=== PATIENT | male | born 1940 | race Caucasian/White ===

== ENCOUNTER 2018-11-24 15:22 | Inpatient (IN) | payer OTHER ==
--- NOTE | 2018-11-24 15:53 | EDPHY ---
H & P Time Seen by Provider: 11/24/18 15:37 HPI/ROS: Chief complaint. Shortness of breath HPI. 78-year-old male presents emergency department with complaint of several weeks progressive swelling and shortness of breath. He has dyspnea on exertion. Patient had pericardial effusion that was drained in May 2018. Apparently the concern is it has gradually been reaccumulating. He has had increased swelling and shortness of breath. His say his lips however Blue. He has gained weight. The last 2 days decreased oral intake and decreased energy. He saw cardiac surgeon last week for consultation for para cardiac to me. He scheduled in 2 days for heart catheterization. He has no chest pain. He does have dyspnea on exertion. He felt to have an has a left proximal humerus fracture. He has swelling to hands and feet. ROS 10 systems were reviewed and negative with the exception of the elements mentioned in the history of present illness Past Medical/Surgical History: Pericarditis, humeral fracture, diabetes Social History: , nonsmoker, no alcohol Smoking Status: Former smoker Physical Exam: General Appearance: Alert well-developed male mild distress vital signs stable Eyes: Pupils equal and round no pallor or injection. ENT, Mouth: Mucous membranes are moist. Respiratory: There are no retractions, lungs are clear to auscultation. Cardiovascular: Regular rate and rhythm. Gastrointestinal: Abdomen is soft and nontender, no masses, bowel sounds normal. Neurological: Awake and alert, sensory and motor exams grossly normal. Skin: Warm and dry, no rashes. Musculoskeletal: Neck is supple nontender. Extremities 2+ edema to both hands and feet Psychiatric: Patient is oriented X 3, there is no agitation. Constitutional: Initial Vital Signs Temperature (C) 37.1 C 11/24/18 15:25 Heart Rate 94 11/24/18 15:25 Respiratory Rate 18 11/24/18 15:25 Blood Pressure 105/83 H 11/24/18 15:25 O2 Sat (%) 93 11/24/18 15:25 O2 Delivery Mode Room Air Allergies/Adverse Reactions: No Known Allergies Allergy (Verified 11/24/18 15:23) Home Medications: Medication Instructions Recorded Carvedilol [Coreg (*)] 6.25 mg PO BIDMEAL 11/19/18 Colchicine [Colchicine (*)] 0.6 mg PO DAILY 11/19/18 Hydrocodone/APAP 5/325 [[place] 1 each PO Q4-6PRN PRN 11/19/18 5/325 (*)] Insulin Glargine [Lantus 100 75 - 80 units SC HS 11/19/18 UNITS/ML] Insulin Lispro [Humalog] 25 - 30 unit SQ TIDMEAL 11/19/18 Liraglutide [Victoza 3-Rc] 1.8 mg SQ HS 11/19/18 Losartan Potassium 100 mg PO DAILY 11/19/18 Rosuvastatin Calcium [Crestor 10mg 5 mg PO DAILY 11/19/18 (RX)] metFORMIN HCL [Glucophage 500 mg 500 mg PO BIDMEAL 11/19/18 (*)] Carvedilol 11/24/18 Medical Decision Making - Diagnostics EKG Interpretation: EKG interpreted by me shows ventricular paced rhythms. Left axis deviation. Interventricular conduction delay. No significant ST elevation or depression. No arrhythmia. The rate is 102 Imaging Results: Imaging Impressions Chest X-Ray 11/24/18 16:05 Impression: 1. Severe cardiomegaly. Central vascular prominence. 2. Hazy opacity at the left lung base may represent an effusion or artifact from overlying/adjacent soft tissue. Lateral chest radiograph would be helpful. Chest x-ray significant for cardiomegaly Procedures: IV normal saline ED Course/Re-evaluation: Re-evaluation 4:45 p.m.. Patient is stable. The patient is and I discussed laboratory imaging EKG evaluation. We discussed treatment plan including recommendation for admission. They expressed understanding and agreement I consulted discussed the case with Dr. Mario, hospitalist, who agrees to the admission Differential Diagnosis: Cardiomegaly and dyspnea on exertion gradually increasing in a patient with previous pericarditis complicated by fusion in tamponade. I have also considered congestive heart failure as well as acute coronary syndrome - Data Points Laboratory Results: Laboratory Results 11/24/18 15:55 11/24/18 15:55 11/24/18 11/24/18 11/24/18 16:03 15:55 15:55 WBC RBC Hgb Hct MCV MCH MCHC RDW Plt Count MPV Neut % (Auto) Lymph % (Auto) [place] % (Auto) Eos % (Auto) Baso % (Auto) Nucleat RBC Rel Count Absolute Neuts (auto) Absolute Lymphs (auto) Absolute Monos (auto) Absolute Eos (auto) Absolute Basos (auto) Absolute Nucleated RBC Immature Gran % Immature Gran # ESR PT 13.5 SEC SEC (12.0-15.0) INR 1.07 (0.83-1.16) APTT 29.4 SEC SEC (23.0-38.0) Sodium 135 mEq/L mEq/L (135-145) Potassium 3.9 mEq/L mEq/L (3.5-5.2) Chloride 101 mEq/L mEq/L (97-110) Carbon Dioxide 25 mEq/l mEq/l (22-31) Anion Gap 9 mEq/L mEq/L (6-14) BUN 23 mg/dL mg/dL (7-23) Creatinine 1.6 mg/dL H mg/dL (0.7-1.3) Estimated GFR 42 Glucose 73 mg/dL mg/dL (70-100) Calcium 9.7 mg/dL mg/dL (8.5-10.4) POC Troponin I 0.05 ng/mL ng/mL (0.00-0.08) NT-Pro-B Natriuret Pep 423 pg/mL pg/mL (0-450) 11/24/18 15:55 WBC 11.70 10^3/uL H 10^3/uL (3.80-9.50) RBC 4.54 10^6/uL 10^6/uL (4.40-6.38) Hgb 13.7 g/dL g/dL (13.7-17.5) Hct 40.1 % % (40.0-51.0) MCV 88.3 fL fL (81.5-99.8) MCH 30.2 pg pg (27.9-34.1) MCHC 34.2 g/dL g/dL (32.4-36.7) RDW 15.2 % % (11.5-15.2) Plt Count 233 10^3/uL 10^3/uL (150-400) MPV 11.4 fL fL (8.7-11.7) Neut % (Auto) 67.2 % % (39.3-74.2) Lymph % (Auto) 19.1 % % (15.0-45.0) [place] % (Auto) 10.6 % % (4.5-13.0) Eos % (Auto) 1.0 % % (0.6-7.6) Baso % (Auto) 0.8 % % (0.3-1.7) Nucleat RBC Rel Count 0.0 % % (0.0-0.2) Absolute Neuts (auto) 7.86 10^3/uL H 10^3/uL (1.70-6.50) Absolute Lymphs (auto) 2.24 10^3/uL 10^3/uL (1.00-3.00) Absolute Monos (auto) 1.24 10^3/uL H 10^3/uL (0.30-0.80) Absolute Eos (auto) 0.12 10^3/uL 10^3/uL (0.03-0.40) Absolute Basos (auto) 0.09 10^3/uL 10^3/uL (0.02-0.10) Absolute Nucleated RBC 0.00 10^3/uL 10^3/uL (0-0.01) Immature Gran % 1.3 % H % (0.0-1.1) Immature Gran # 0.15 10^3/uL H 10^3/uL (0.00-0.10) ESR 20 MM/HR MM/HR (0-20) PT INR APTT Sodium Potassium Chloride Carbon Dioxide Anion Gap BUN Creatinine Estimated GFR Glucose Calcium POC Troponin I NT-Pro-B Natriuret Pep Point of Care Test Results: Chemistry 11/24/18 16:03 POC Troponin I 0.05 ng/mL ng/mL (0.00-0.08) Departure - Departure Disposition: Home, Routine, Self-Care Clinical Impression: Dyspnea Qualifiers: Dyspnea type: dyspnea on exertion Qualified Code(s): R06.09 - Other forms of dyspnea Condition: Fair
[2018-11-24 16:16] LABS: PLATELET COUNT 233 10^3/uL (150-400)
[2018-11-24 16:33] LABS: INR 1.07 (0.83-1.16); PROTIME(PATIENT) 13.5 SEC (12.0-15.0)
[2018-11-24] MEDS ORDERED: ACETAMINOPHEN 500 MG TAB ONE (17:01)
[2018-11-24] MEDS ORDERED: ACETAMINOPHEN 500 MG TAB PO ONE (17:03)
--- NOTE | 2018-11-24 17:22 | CPEKG ---
Test Reason : OPEN Blood Pressure : / mmHG Vent. Rate : 102 BPM Atrial Rate : 101 BPM P-R Int : 167 ms QRS Dur : 134 ms QT Int : 416 ms P-R-T Axes : -56 071 260 degrees QTc Int : 543 ms Ventricular-paced complexes Confirmed by Devonte Garcia ([id number]) on 11/24/2018 5:22:08 PM Referred By: Devonte Garcia Confirmed By:Devonte Garcia
[2018-11-24] MEDS ORDERED: D50W 25 GM/50 ML SYR IVP PRN (17:39)
--- NOTE | 2018-11-24 17:57 | PDGENHP ---
<Emely Petit - Last Filed: 11/24/18 18:22> History and Physical - Chief Complaint Dyspnea, edematous - History of Present Illness 78 y/o male w/hx of pericarditis complicated by effusion w/cardiac tamponade requiring pericardiocentesis in May 2018 presents to the ED 2 days before undergoing cardiac cath d/t worsening dyspnea upon exertion and edematous. He was recently seen by Dr. Ramos in office 11/18/18 re: additional weight gain of 10 lbs and reaccumulation tightness in his abdomen and swelling in his legs. He also has become quite dyspneic w/exertion and per pt, his tells him his lips turn purple. He denies CP, palpitations, nausea. Endorses lightheadedness w/exertion. Two weeks prior, he fell down stairs and broke his left humeral head - no surgery but requires immobilization in a sling for an undetermined amount of time hence surgical evaluation for his echogenic evidence of constrictive pericarditis and referral for pericardiectomy was delayed. He is being admitted for treatment and monitoring. History Information - Allergies/Home Medication List Allergies/Adverse Reactions: No Known Allergies Allergy (Verified 11/24/18 15:23) Home Medications: Carvedilol [Coreg (*)] 6.25 mg PO BIDMEAL 11/19/18 [Last Taken 11/24/18] Colchicine [Colchicine (*)] 0.6 mg PO DAILY 11/19/18 [Last Taken 11/24/18] Hydrocodone/APAP 5/325 [[place] 5/325 (*)] 1 each PO Q4-6PRN PRN 11/19/18 [Last Taken Unknown] Insulin Glargine [Lantus 100 UNITS/ML] 75 units SC DAILY 11/19/18 [Last Taken ] Insulin Lispro [Humalog] 25 - 30 unit SQ TIDMEAL 11/19/18 [Last Taken 11/24/18] Liraglutide [Victoza 3-Rc] 1.8 mg SQ HS 11/19/18 [Last Taken 11/23/18] Losartan Potassium 100 mg PO DAILY 11/19/18 [Last Taken 11/24/18] Rosuvastatin Calcium [Crestor 10mg (RX)] 5 mg PO DAILY 11/19/18 [Last Taken ] metFORMIN HCL [Glucophage 500 mg (*)] 500 mg PO BIDMEAL 11/19/18 [Last Taken ] I have personally reviewed and updated: family history, medical history, social history, surgical history Past Medical History: Chronic renal insufficiency, Obesity, Hypogonadism, 2nd degree AV block/Mobitz Type I - Past Medical History diabetes type 2, GERD, hypertension - Surgical History Reports: pacemaker/AICD (2013) Additional surgical history: Cataract, colonoscopy - Family History Positive for: non-pertinent - Social History Smoking Status: Former smoker Alcohol Use: Rarely Drug Use: None Additional social history: . 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 Review of Systems Review of Systems: ROS: 10pt was reviewed & negative except for what was stated in HPI & below Physical Exam Physical Exam: Lab data and imaging were reviewed. Case discussed w/admitting physician, Dr. Jose Mario WBC: 11.70 H/H: 13.7/40.1 Plt count: 233 Na: 135 K: 3.9 Cl: 101 Co2: 25 BUN/Cr: 23/1.6 ESR: 20 INR: 1.07 Trop: 0.05 BNP: 423 CXR: severe cardiomegaly. EKG:V-paced, No significant ST elevation or depression. Temp Pulse Resp BP Pulse Ox 37.1 C 105 H 19 111/76 99 11/24/18 17:25 11/24/18 17:25 11/24/18 17:25 11/24/18 17:25 11/24/18 17:25 O2 (L/minute) 2 Constitutional: no apparent distress, not in pain, obese Eyes: PERRL, anicteric sclera, EOMI Ears, Nose, Mouth, Throat: moist mucous membranes, hearing normal, ears appear normal, no oral mucosal ulcers Cardiovascular: regular rate and rhythym, no murmur, rub, or gallop, tachycardia , No edema Peripheral Pulses: 2+: dorsalis-pedis (R) (Non pitting edema), dorsalis-pedis (L ) (Non pitting edema) Respiratory: reduced air movement Gastrointestinal: normoactive bowel sounds, soft, non-tender abdomen, no palpable masses Genitourinary: no bladder fullness, no bladder tenderness Skin: warm, normal color, no rashes or abrasions, no fluctuance, no induration, No mottled Musculoskeletal: full muscle strength, no muscle tenderness, normal joint ROM, no joint effusions Neurologic: AAOx3, sensation intact bilaterally, CN II-XII Intact Psychiatric: interacting appropriately, not anxious, not encephalopathic, thought process linear Lymph, Heme, Immunologic: no cervical LAD, no supraclavicular LAD Lab Data & Imaging Review 11/24/18 15:55 11/24/18 15:55 WBC 11.70 10^3/uL (3.80-9.50) H 11/24/18 15:55 RBC 4.54 10^6/uL (4.40-6.38) 11/24/18 15:55 Hgb 13.7 g/dL (13.7-17.5) 11/24/18 15:55 Hct 40.1 % (40.0-51.0) 11/24/18 15:55 MCV 88.3 fL (81.5-99.8) 11/24/18 15:55 MCH 30.2 pg (27.9-34.1) 11/24/18 15:55 MCHC 34.2 g/dL (32.4-36.7) 11/24/18 15:55 RDW 15.2 % (11.5-15.2) 11/24/18 15:55 Plt Count 233 10^3/uL (150-400) 11/24/18 15:55 MPV 11.4 fL (8.7-11.7) 11/24/18 15:55 Neut % (Auto) 67.2 % (39.3-74.2) 11/24/18 15:55 Lymph % (Auto) 19.1 % (15.0-45.0) 11/24/18 15:55 [place] % (Auto) 10.6 % (4.5-13.0) 11/24/18 15:55 Eos % (Auto) 1.0 % (0.6-7.6) 11/24/18 15:55 Baso % (Auto) 0.8 % (0.3-1.7) 11/24/18 15:55 Nucleat RBC Rel Count 0.0 % (0.0-0.2) 11/24/18 15:55 Absolute Neuts (auto) 7.86 10^3/uL (1.70-6.50) H 11/24/18 15:55 Absolute Lymphs (auto) 2.24 10^3/uL (1.00-3.00) 11/24/18 15:55 Absolute Monos (auto) 1.24 10^3/uL (0.30-0.80) H 11/24/18 15:55 Absolute Eos (auto) 0.12 10^3/uL (0.03-0.40) 11/24/18 15:55 Absolute Basos (auto) 0.09 10^3/uL (0.02-0.10) 11/24/18 15:55 Absolute Nucleated RBC 0.00 10^3/uL (0-0.01) 11/24/18 15:55 Immature Gran % 1.3 % (0.0-1.1) H 11/24/18 15:55 Immature Gran # 0.15 10^3/uL (0.00-0.10) H 11/24/18 15:55 ESR 20 MM/HR (0-20) 11/24/18 15:55 PT 13.5 SEC (12.0-15.0) 11/24/18 15:55 INR 1.07 (0.83-1.16) 11/24/18 15:55 APTT 29.4 SEC (23.0-38.0) 11/24/18 15:55 Sodium 135 mEq/L (135-145) 11/24/18 15:55 Potassium 3.9 mEq/L (3.5-5.2) 11/24/18 15:55 Chloride 101 mEq/L (97-110) 11/24/18 15:55 Carbon Dioxide 25 mEq/l (22-31) 11/24/18 15:55 Anion Gap 9 mEq/L (6-14) 11/24/18 15:55 BUN 23 mg/dL (7-23) 11/24/18 15:55 Creatinine 1.6 mg/dL (0.7-1.3) H 11/24/18 15:55 Estimated GFR 42 11/24/18 15:55 Glucose 73 mg/dL (70-100) 11/24/18 15:55 Calcium 9.7 mg/dL (8.5-10.4) 05/20/19 15:55 POC Troponin I 0.05 ng/mL (0.00-0.08) 11/24/18 16:03 NT-Pro-B Natriuret Pep 423 pg/mL (0-450) 11/24/18 15:55 Assessment & Plan Assessment: 78 y/o obese male w/hx of pericarditis complicated w/cardiac tamponade and undergoing pericardiocentesis May 2018 presenting 2 days before scheduled cardiac cath procedure d/t worsening dyspnea upon exertion and extremities edematous. Last set of vitals are the following: BP 125/73, HR 96, Resp 24, Temp 37.1, oxgen 98% 2L NC. #Constrictive pericarditis -Symptomatic w/ dyspnea upon exertion, fluid overloaded, "purple" lips, lightheadedness -Cards consulted. I spoke w/Antoinette Jackson DOLPHIN TRAINER. Cards team will evaluate the pt in AM. Plan per Dr. Ramos's last note was L/RHC simultaneously and if abnormal, pericardectomy +/- CABG pending cath -Recent ECHO in early November suggests constriction w/o effusion -Considering one time dose of Lasix IVP -Daily weights -Cont tele/PCU monitoring -Cycle one trop #Diabetes -Poorly controlled -Checking A1c -ISS while in house, ACHS glucose checks. Holding metformin and Victoza, will cont long acting home insulin #SHIRA: consider CPAP use @ HS #Chronic renal insufficiency, stage IV -Appears to be at baseline (Cr 1.6) -Avoid nephrotoxic agents #Left humeral head fx -Keep immobilized in sling -Pain management PO PRN -PT/OT to evaluate and treat Diet: Cardiac now, NPO at midnight tonight for possible procedure in AM after cards eval VTE ppx: SCDs Code: Full Dispo: Admit to inpatient <Kota Mario - Last Filed: 11/24/18 19:12> History and Physical - History of Present Illness Review of Systems Review of Systems: Physical Exam Physical Exam: Temp Pulse Resp BP Pulse Ox 37.1 C 105 H 19 111/76 99 11/24/18 17:25 11/24/18 17:25 11/24/18 17:25 11/24/18 17:25 11/24/18 17:25 O2 (L/minute) 2 Lab Data & Imaging Review 11/24/18 15:55 11/24/18 15:55 WBC 11.70 10^3/uL (3.80-9.50) H 11/24/18 15:55 RBC 4.54 10^6/uL (4.40-6.38) 11/24/18 15:55 Hgb 13.7 g/dL (13.7-17.5) 11/24/18 15:55 Hct 40.1 % (40.0-51.0) 11/24/18 15:55 MCV 88.3 fL (81.5-99.8) 11/24/18 15:55 MCH 30.2 pg (27.9-34.1) 11/24/18 15:55 MCHC 34.2 g/dL (32.4-36.7) 11/24/18 15:55 RDW 15.2 % (11.5-15.2) 11/24/18 15:55 Plt Count 233 10^3/uL (150-400) 11/24/18 15:55 MPV 11.4 fL (8.7-11.7) 11/24/18 15:55 Neut % (Auto) 67.2 % (39.3-74.2) 11/24/18 15:55 Lymph % (Auto) 19.1 % (15.0-45.0) 11/24/18 15:55 [place] % (Auto) 10.6 % (4.5-13.0) 11/24/18 15:55 Eos % (Auto) 1.0 % (0.6-7.6) 11/24/18 15:55 Baso % (Auto) 0.8 % (0.3-1.7) 11/24/18 15:55 Nucleat RBC Rel Count 0.0 % (0.0-0.2) 11/24/18 15:55 Absolute Neuts (auto) 7.86 10^3/uL (1.70-6.50) H 11/24/18 15:55 Absolute Lymphs (auto) 2.24 10^3/uL (1.00-3.00) 11/24/18 15:55 Absolute Monos (auto) 1.24 10^3/uL (0.30-0.80) H 11/24/18 15:55 Absolute Eos (auto) 0.12 10^3/uL (0.03-0.40) 11/24/18 15:55 Absolute Basos (auto) 0.09 10^3/uL (0.02-0.10) 11/24/18 15:55 Absolute Nucleated RBC 0.00 10^3/uL (0-0.01) 11/24/18 15:55 Immature Gran % 1.3 % (0.0-1.1) H 11/24/18 15:55 Immature Gran # 0.15 10^3/uL (0.00-0.10) H 11/24/18 15:55 ESR 20 MM/HR (0-20) 11/24/18 15:55 PT 13.5 SEC (12.0-15.0) 11/24/18 15:55 INR 1.07 (0.83-1.16) 11/24/18 15:55 APTT 29.4 SEC (23.0-38.0) 11/24/18 15:55 Sodium 135 mEq/L (135-145) 11/24/18 15:55 Potassium 3.9 mEq/L (3.5-5.2) 11/24/18 15:55 Chloride 101 mEq/L (97-110) 11/24/18 15:55 Carbon Dioxide 25 mEq/l (22-31) 11/24/18 15:55 Anion Gap 9 mEq/L (6-14) 11/24/18 15:55 BUN 23 mg/dL (7-23) 11/24/18 15:55 Creatinine 1.6 mg/dL (0.7-1.3) H 11/24/18 15:55 Estimated GFR 42 11/24/18 15:55 Glucose 73 mg/dL (70-100) 11/24/18 15:55 POC Glucose 61 mg/dL (70-100) L 11/24/18 17:48 Calcium 9.7 mg/dL (8.5-10.4) 11/24/18 15:55 POC Troponin I 0.05 ng/mL (0.00-0.08) 11/24/18 16:03 NT-Pro-B Natriuret Pep 423 pg/mL (0-450) 11/24/18 15:55 Assessment & Plan Assessment: 78M with pericardial tamponade, being evaluated as outpatient for pericardiectomy. Presented with worsening symptoms. No pulsus paradoxus on exam, not hypotensive. Plan: - hold BP meds - RHC/LHC tomorrow to eval for CABG at the time of pericardiectomy - follow renal function closely after cath
[2018-11-24] MEDS ORDERED: HYDROCODONE/APAP 5/325 TAB PO PRN (18:19)
[2018-11-24] MEDS: INSULIN REGULAR HUMAN 100 UNIT/ML UNIT SC SCH (21:21)
[2018-11-25] MEDS: INSULIN REGULAR HUMAN 100 UNIT/ML UNIT SC SCH ×4 (05:24→20:51)
[2018-11-25] MEDS ORDERED: CARVEDILOL 6.25 MG TAB PO SCH (08:00)
[2018-11-25] MEDS ORDERED: LOSARTAN POTASSIUM 50 MG TAB PO SCH (09:00)
[2018-11-25] MEDS ORDERED: COLCHICINE 0.6 MG CAP/TAB PO SCH (09:00)
[2018-11-25] MEDS ORDERED: INSULIN GLARGINE 100 UNITS/ML UNIT SC SCH ×3 (09:00→21:00)
[2018-11-25] MEDS: ROSUVASTATIN CALCIUM 10 MG TAB PO SCH (09:33)
[2018-11-25] MEDS: ACETAMINOPHEN 325 MG TAB PO PRN ×2 (09:33→20:43)
--- NOTE | 2018-11-25 09:53 | PDMN ---
Medical Necessity Medical necessity: Pt meets inpt criteria per MD order and MCG [id number], Pericarditis, A-2 days, inpt adm indicated for: evidence of constrictive pericarditis (worsening dyspnea upon exertion, light-headedness, most recent ECHO from early November suggests constriction w/o effusion), current cxr shows severe cardiomegaly w/possible effusion. 78 y/o w/hx previous pericarditis complicated by effusion w/cardiac tamponade requiring pericardiocentesis in May 2018 now presents w/worsening dyspnea, recent 10# wt gain, and reaccumulation of tightness in abd and swelling in legs, admitted now w/symptomatic constrictive pericarditis, cardiology consult pending, R/LHC today, anticipate> 2MN for further eval/treatment of above. PMHx includes (in addition to above) diabetes (poorly controlled), obesity, SHIRA, stage IV chronic renal insufficiency , recent fall sustaining L humeral head fx.
[2018-11-25] MEDS ORDERED: TEMAZEPAM 15 MG CAP PO PRN (11:03)
[2018-11-25] MEDS ORDERED: diphenhydrAMINE 25 MG CAP PO ONE (11:03)
[2018-11-25] MEDS ORDERED: DIAZEPAM 5 MG TAB PO ONE (11:03)
[2018-11-25] MEDS ORDERED: FAMOTIDINE 20 MG TAB PO ONE (11:03)
[2018-11-25] MEDS ORDERED: NITROGLYCERIN 0.4 MG BTL SL PRN (11:03)
[2018-11-25] MEDS ORDERED: ASPIRIN EC 325 MG TAB PO ONE (11:03)
[2018-11-25] MEDS ORDERED: fentaNYL 100 MCG/2 ML INJ ONE (11:12)
[2018-11-25] MEDS ORDERED: LIDOCAINE 1% 300 MG/30 ML SDV ONE (11:12)
[2018-11-25] MEDS ORDERED: IOPAMIDOL (ISOVUE 370) 100 ML BTL IV ONE (11:13)
[2018-11-25] MEDS ORDERED: MIDAZOLAM 2 MG/2 ML VIAL ONE (11:13)
--- NOTE | 2018-11-25 11:55 | PDPROPOC ---
Sedation Plan of Care Sedation Plan of Care: vital signs stable, mental status noted, patient educated of risks, benefits, alternatives, patient can tolerate sedation ASA Classification: ASA 2 Planned drugs: fentanyl, midazolam Mallampati Score: Class 1 Mallampati Reference Image: Patient passed 3-3-2 rule?: Yes
--- NOTE | 2018-11-25 12:00 | PDCARCONS ---
Cardiology Consult Reason for Consult: Evaluation for constriction including cardiac catheterization and review of echocardiography Chief Complaint: 78-year-old male admitted for evaluation of cardiac constriction in the setting of recurrent pericarditis status post pericardiocentesis. Symptoms of progressive lower extremity swelling, shortness of breath, fatigue, dizziness. Requesting Physician: raza History of Present Illness: 78-year-old male history of second-degree heart block with permanent pacemaker implanted prior 2014. He had been followed by the [facility] for many years. He had a nuclear stress test in 2014 which showed a question of an apical defect which was treated medically. Hyperlipidemia has been well managed. He has underlying diabetes which has been managed. He has no prior history of myocardial infarction. No history of heart failure. Patient had episode of pericarditis in May complicated by a effusion. This suggested tamponade physiology and underwent pericardiocentesis. He has been treated for both acute and chronic pericarditis. After stopping treatment he again developed symptoms of fatigue shortness of breath and lower extremity swelling. Echocardiography done at the [facility] suggested constriction any was referred to Damian Ramos for pericardial stripping. Ejection fraction is followed from the normal range to 40% on most recent studies. History Information - Allergies/Home Medication List Allergies/Adverse Reactions: No Known Allergies Allergy (Verified 11/24/18 15:23) Home Medications: Carvedilol [Coreg (*)] 6.25 mg PO BIDMEAL 11/19/18 [Last Taken 11/24/18] Colchicine [Colchicine (*)] 0.6 mg PO DAILY 11/19/18 [Last Taken 11/24/18] Hydrocodone/APAP 5/325 [[place] 5/325 (*)] 1 each PO Q4-6PRN PRN 11/19/18 [Last Taken Unknown] Insulin Glargine [Lantus 100 UNITS/ML] 75 units SC DAILY 11/19/18 [Last Taken ] Insulin Lispro [Humalog] 25 - 30 unit SQ TIDMEAL 11/19/18 [Last Taken 11/24/18] Liraglutide [Victoza 3-Rc] 1.8 mg SQ HS 11/19/18 [Last Taken 11/23/18] Losartan Potassium 100 mg PO DAILY 11/19/18 [Last Taken 11/24/18] Rosuvastatin Calcium [Crestor 10mg (RX)] 5 mg PO DAILY 11/19/18 [Last Taken ] metFORMIN HCL [Glucophage 500 mg (*)] 500 mg PO BIDMEAL 11/19/18 [Last Taken ] I have personally reviewed and updated: family history, medical history, social history, surgical history Past Medical History: - Past Medical History hypertension, hyperlipidemia - Social History Smoking Status: Former smoker Alcohol Use: Rarely Drug Use: None Physical Exam Physical Exam: Temp Pulse Resp BP Pulse Ox 36.7 C 89 20 122/77 H 97 11/25/18 07:01 11/25/18 07:01 11/25/18 07:01 11/25/18 07:01 11/25/18 07:01 O2 (L/minute) 2 Constitutional: no apparent distress Eyes: PERRL Ears, Nose, Mouth, Throat: moist mucous membranes Cardiovascular: regular rate and rhythym, other (No knock.), No systolic murmur , No JVD Peripheral Pulses: 1+: carotid (R), carotid (L) Respiratory: no respiratory distress Gastrointestinal: soft, non-tender abdomen Skin: warm, No rash Neurologic: facial droop Psychiatric: interacting appropriately Lymph, Heme, Immunologic: no cervical LAD, no supraclavicular LAD Lab and Imaging 11/24/18 15:55 11/24/18 15:55 WBC 11.70 10^3/uL (3.80-9.50) H 11/24/18 15:55 RBC 4.54 10^6/uL (4.40-6.38) 11/24/18 15:55 Hgb 13.7 g/dL (13.7-17.5) 11/24/18 15:55 Hct 40.1 % (40.0-51.0) 11/24/18 15:55 MCV 88.3 fL (81.5-99.8) 11/24/18 15:55 MCH 30.2 pg (27.9-34.1) 11/24/18 15:55 MCHC 34.2 g/dL (32.4-36.7) 11/24/18 15:55 RDW 15.2 % (11.5-15.2) 11/24/18 15:55 Plt Count 233 10^3/uL (150-400) 11/24/18 15:55 MPV 11.4 fL (8.7-11.7) 11/24/18 15:55 Neut % (Auto) 67.2 % (39.3-74.2) 11/24/18 15:55 Lymph % (Auto) 19.1 % (15.0-45.0) 11/24/18 15:55 [place] % (Auto) 10.6 % (4.5-13.0) 11/24/18 15:55 Eos % (Auto) 1.0 % (0.6-7.6) 11/24/18 15:55 Baso % (Auto) 0.8 % (0.3-1.7) 11/24/18 15:55 Nucleat RBC Rel Count 0.0 % (0.0-0.2) 11/24/18 15:55 Absolute Neuts (auto) 7.86 10^3/uL (1.70-6.50) H 11/24/18 15:55 Absolute Lymphs (auto) 2.24 10^3/uL (1.00-3.00) 11/24/18 15:55 Absolute Monos (auto) 1.24 10^3/uL (0.30-0.80) H 11/24/18 15:55 Absolute Eos (auto) 0.12 10^3/uL (0.03-0.40) 11/24/18 15:55 Absolute Basos (auto) 0.09 10^3/uL (0.02-0.10) 11/24/18 15:55 Absolute Nucleated RBC 0.00 10^3/uL (0-0.01) 11/24/18 15:55 Immature Gran % 1.3 % (0.0-1.1) H 11/24/18 15:55 Immature Gran # 0.15 10^3/uL (0.00-0.10) H 11/24/18 15:55 ESR 20 MM/HR (0-20) 11/24/18 15:55 PT 13.5 SEC (12.0-15.0) 11/24/18 15:55 INR 1.07 (0.83-1.16) 11/24/18 15:55 APTT 29.4 SEC (23.0-38.0) 11/24/18 15:55 Sodium 135 mEq/L (135-145) 11/24/18 15:55 Potassium 3.9 mEq/L (3.5-5.2) 11/24/18 15:55 Chloride 101 mEq/L (97-110) 11/24/18 15:55 Carbon Dioxide 25 mEq/l (22-31) 11/24/18 15:55 Anion Gap 9 mEq/L (6-14) 11/24/18 15:55 BUN 23 mg/dL (7-23) 11/24/18 15:55 Creatinine 1.6 mg/dL (0.7-1.3) H 11/24/18 15:55 Estimated GFR 42 11/24/18 15:55 Glucose 73 mg/dL (70-100) 11/24/18 15:55 POC Glucose 89 mg/dL (70-100) 11/25/18 08:12 Hemoglobin A1c 8.4 % (4.0-6.0) H 11/24/18 17:46 Estim Average Glucose 194 mg/dL (68-126) H 11/24/18 17:46 Calcium 9.7 mg/dL (8.5-10.4) 11/24/18 15:55 POC Troponin I 0.05 ng/mL (0.00-0.08) 11/24/18 16:03 Troponin I 0.053 ng/mL (0.000-0.034) H 11/24/18 19:54 NT-Pro-B Natriuret Pep 423 pg/mL (0-450) 11/24/18 15:55 A/P Assessment: Heart failure associated with decreased ejection fraction, recent pericardiocentesis in the setting of acute and chronic pericarditis, longstanding diabetes, longstanding pacing due to second-degree heart block for assessment of constriction today. Risks and benefits of a diagnostic cardiac catheterization were discussed. Will also plan to repeat echocardiographic parameters once we understand his filling pressures. Query related to long- term pacing versus presence of underlying severe multivessel coronary disease.
--- NOTE | 2018-11-25 13:09 | PDDXCAT ---
Diagnostic Cath Note - . 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) - Procedure Access: right groin Procedure: left heart catheterization, coronary angiography, right heart catheterization - Materials Left Heart Cath size: 5F Left Heart Cath materials: standard multipack (JL4, JR4, pigtail) Right Heart Cath size: 7F Right Heart Cath materials: PWP catheter - Findings-Left Heart Catheterization LM: Unobstructed LAD: Unobstructed LCX: Unobstructed RCA: Unobstructed - Findings-Right Heart Catheterization RA: 12 mm of mercury RV: 43/12 mm of mercury PA: 44/20 mm of mercury PAOP: 18 mm of mercury Complications: None Estimated blood loss: <50ml Closure method: Angioseal Assessment: Hemodynamics with simultaneous RV LV tracings suggest discordance consistent with constrictive cardiomyopathy. Nonfocal mild atherosclerotic cardiovascular disease Plan: Await echo confirmation/CT surgery consultation. Patient Problems: Problems Problem Status Onset Dyspnea Acute
--- NOTE | 2018-11-25 15:20 | HOSPPROG ---
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 Objective: Vital Signs Temp Pulse Resp BP Pulse Ox 36.7 C 88 17 121/80 H 96 11/25/18 07:01 11/25/18 14:56 11/25/18 14:56 11/25/18 14:56 11/25/18 14:56 11/24/18 11/25/18 11/26/18 05:59 05:59 05:59 Intake Total 700 650 Output Total 390 Balance 310 650 PT 13.5 SEC (12.0-15.0) 11/24/18 15:55 INR 1.07 (0.83-1.16) 11/24/18 15:55 EKG viewed, my personal interpretation is - paced CXR - CM, mild CHF Laboratory Tests 11/24/18 11/24/18 15:55 19:54 Creatinine 1.6 H Troponin I 0.053 H - Physical Exam Constitutional: no apparent distress, appears nourished, not in pain Cardiovascular: regular rate and rhythym, no murmur, rub, or gallop Respiratory: no respiratory distress, no rales or rhonchi, clear to auscultation Gastrointestinal: normoactive bowel sounds, soft, non-tender abdomen, no palpable masses Skin: no rashes or abrasions, no fluctuance, no induration Neurologic: AAOx3, sensation intact bilaterally Psychiatric: interacting appropriately, not anxious, not encephalopathic, thought process linear ICD10 Worksheet Patient Problems: Problems Problem Status Onset Dyspnea Acute
--- NOTE | 2018-11-25 15:45 | ASMTCMCOM ---
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 Attempted to meet w/pt, sleeping after procedure; no family in the room. Therapy evals are pending. Case Management d/c poc: to be determined. Case Management to follow. Date Signed: 11/25/2018 03:45 PM Electronically Signed By:Nyla Collins RN
[2018-11-25 16:48] LABS: PLATELET COUNT 178 10^3/uL (150-400)
[2018-11-25 17:11] LABS: INR 1.1 (0.83-1.16); PROTIME(PATIENT) 13.8 SEC (12.0-15.0)
[2018-11-26] MEDS: INSULIN REGULAR HUMAN 100 UNIT/ML UNIT SC SCH ×4 (07:53→21:28)
[2018-11-26] MEDS: ROSUVASTATIN CALCIUM 10 MG TAB PO SCH (09:07)
[2018-11-26] MEDS: ACETAMINOPHEN 325 MG TAB PO PRN (09:07)
[2018-11-26] MEDS ORDERED: BACITRACIN IRRIGATION/NS 50,000 UNITS/1,000 ML BTL IRR ONE (13:00)
[2018-11-26] MEDS ORDERED: NS 1,000 ML IV ONE (13:00)
[2018-11-26] MEDS ORDERED: ceFAZolin 2 GM/DEXTROSE 100 ML IV ONE (13:00)
--- NOTE | 2018-11-26 13:22 | ECHO ---
[email or web address] [address] [address] Main: [phone] Echocardiography Examination Transesophageal Name: DUSTIN HARRINGTON MR#: [id number] Study Date: 11/25/2018 Study Time: 11:19 AM Date of : 1940 Age: 78 year(s) Height: 170.2 cm (67 in.) Weight: 99.79 kg (220 lb.) BSA: 2.11 m2 Gender: Male Examination: Echo Contrast: Image Quality: Fair Rhythm: Pacemaker rhythm Heart Rate: 100 bpm BP: 136 mmHg/75 mmHg Indication: Pre Cath, Echo and Constriction vs Restriction Procedure Staff Referring Physician: System Software Developer: Jaiden Fried RDCS Reading Physician: Richie Small MD Requesting Provider: Ordering Physician: Kota Mario Indication: Pre Cath, Echo and Constriction vs Restriction Measurements Chambers AV/MV Label Value Normal Value Label Value Normal Value LVOT Vmax 0.72 m/s (0.7m/s - 1.1m/s) AV PGmax 4 mmHg LVOTd 2.1 cm (1.9cm - 2.1cm) AV PGmean 2 mmHg LVOT VTI 14.1 cm (18cm - 22cm) AV Vmax 1.05 m/s LVDd, 2D 5.2 cm (4.2cm - 5.9cm) BELA (Vmax) 2.4 cm2 LVDs, 2D 3.5 cm (2.1cm - 4cm) BELA (VTI) 3 cm2 IVSd, 2D 1.1 cm (0.6cm - 1.1cm) MV E Vmax 0.73 m/s LVPWd, 2D 1.3 cm (0.6cm - 1cm) MV A Vmax 0.73 m/s LVEF, 2D 61 % (54% - 74%) MV E/A 1 LVOT PGmean 1 mmHg MV E/E' lateral 14 LVOT Vmean 0.5 m/s MV E/E' septal 14 (0.45 - 1.25) LADs, 2D 3 cm (3cm - 4cm) MV E' septal 0.05 m/s Additional Vessels MV E' lateral 0.05 m/s Label Value Normal Value MV E/E' mean 14.6 AoRoot, MM 3.4 cm (2.2cm - 3.7cm) MV E' mean 0.05 m/s TV/PV Label Value Normal Value TV A Vmax 0.56 m/s TV E Vmax 0.57 m/s TV E/A ratio 1 Patient: DUSTIN HARRINGTON Study Date: 11/25/2018 Page 1 of 2 11:19 AM PV PGmax 4 mmHg PV Vmax, Caliper 0.98 m/s (0.6m/s - 0.9m/s) Conclusions Overall Conclusions: No pericardial effusion. Reduced LV systolic function with anterior apical regional wall motion abnormalities consistent with pacemaker mediated cardiomyopathy. Tissue Doppler suggest primary myocardial disease. Findings Left Ventricle: The E/e' is 9.0, There is septal bounce consistent with a pacemaker rhythm, there appears to be respiratory variation of the mitral valve and tricuspid valve waveforms. Consider Contstrictive pericariditis.. Left ventricle is normal in size. Normal global systolic left ventricular function. Left ventricle wall thickness is normal. Right Ventricle: Normal size right ventricle. There is a pacing/ICD wire present in the right ventricle. Left Atrium: The left atrium is normal in size. Right Atrium: The right atrium is normal in size. Mitral Valve: Mitral valve appears structurally normal. No mitral regurgitation. No mitral valve stenosis. Aortic Valve: Aortic leaflets are structurally normal. No aortic valve regurgitation. Tricuspid Valve: Tricuspid valve leaflets are structurally normal. No significant tricuspid regurgitation. Pulmonic Valve: Pulmonic valve not well visualized. Aorta: The aorta is normal. The aortic root size in M-mode measures 3.4 cm. Aorta Measurements AoRoot, MM is 3.4 cm. Pericardium: No pericardial effusion. Exam Details Procedure Ordered: Echo Image Quality: Fair (No Signature Object) Patient: DUSTIN HARRINGTON Study Date: 11/25/2018 Page 2 of 2 11:19 AM [id number]
--- NOTE | 2018-11-26 16:34 | HOSPPROG ---
Hospitalist Progress Note Assessment/Plan: * Constrictive pericarditis -change PCM device scheduled for today -may eventually need CT surgery * Acute on chronic systolic CHF - EF 40% -hold further lasix as suspect pre-load dependent * PCM for 2nd degree heart block * Borderline troponin -cardiac cath negative * DM II -Lantus -hold metformin - should DC indefinitely if baseline creatinine 1.6 * SHIRA - CPAP * CKD -baseline creatinine 1.6 * Left humerus head fracture -immobilize in sling * Obesity BMI 33 Subjective: no new complaints. Objective: Vital Signs Temp Pulse Resp BP Pulse Ox 37.2 C 100 20 101/67 95 11/26/18 15:05 11/26/18 15:05 11/26/18 15:05 11/26/18 15:05 11/26/18 15:05 Laboratory Results 11/25/18 16:30 11/25/18 15:25 11/25/18 11/26/18 11/27/18 05:59 05:59 05:59 Intake Total 700 950 Output Total 390 500 600 Balance 310 450 -600 PT 13.8 SEC (12.0-15.0) 11/25/18 16:30 INR 1.10 (0.83-1.16) 11/25/18 16:30 - Physical Exam Constitutional: no apparent distress, appears nourished, not in pain Cardiovascular: regular rate and rhythym, no murmur, rub, or gallop Respiratory: no respiratory distress, no rales or rhonchi, clear to auscultation Gastrointestinal: normoactive bowel sounds, soft, non-tender abdomen, no palpable masses Skin: no rashes or abrasions, no fluctuance, no induration Neurologic: AAOx3, sensation intact bilaterally Psychiatric: interacting appropriately, not anxious, not encephalopathic, thought process linear ICD10 Worksheet Patient Problems: Problems Problem Status Onset Dyspnea Acute
--- NOTE | 2018-11-26 16:35 | ASMTCMCOM ---
CM Note CM Note Notes: Pt received upgrade to pacemaker, per PT/OT pt cleared for home. Anticipate he will dc home with support of when medically stable, CM available should his needs change. DC Plan: Independent Date Signed: 11/26/2018 04:34 PM Electronically Signed By:Asiya Saul RN
[2018-11-26] MEDS ORDERED: BUPIVACAINE 0.5% 30 ML SDV ONE (17:28)
[2018-11-26] MEDS ORDERED: IOPAMIDOL (ISOVUE-300) 100 ML BTL ONE (17:28)
[2018-11-26] MEDS ORDERED: ALBUTEROL 3 ML DEYVIAL IH PRN (17:43)
[2018-11-26] MEDS ORDERED: ONDANSETRON 4 MG/2 ML VIAL IVP PRN (17:43)
[2018-11-26] MEDS ORDERED: fentaNYL 100 MCG/2 ML INJ IVP PRN (17:43)
[2018-11-26] MEDS ORDERED: HYDROmorphONE/DILAUDID 1 MG/ML INJ IVP PRN (17:43)
[2018-11-26] MEDS ORDERED: NALOXONE HCL 0.4 MG/ML INJ IVP PRN (17:43)
[2018-11-26] MEDS ORDERED: MIDAZOLAM 2 MG/2 ML VIAL IVP ONE (17:43)
[2018-11-26] MEDS ORDERED: MIDAZOLAM 2 MG/2 ML VIAL ONE (17:44)
--- NOTE | 2018-11-26 17:45 | PDANEPAE ---
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: [employer] ANE Patient History - Allergies Allergies/Adverse Reactions: No Known Allergies Allergy (Verified 11/24/18 15:23) - Home Medications Home Medications: Carvedilol [Coreg (*)] 6.25 mg PO BIDMEAL 11/19/18 [Last Taken 11/24/18] Colchicine [Colchicine (*)] 0.6 mg PO DAILY 11/19/18 [Last Taken 11/24/18] Hydrocodone/APAP 5/325 [[place] 5/325 (*)] 1 each PO Q4-6PRN PRN 11/19/18 [Last Taken Unknown] Insulin Glargine [Lantus 100 UNITS/ML] 75 units SC DAILY 11/19/18 [Last Taken ] Insulin Lispro [Humalog] 25 - 30 unit SQ TIDMEAL 11/19/18 [Last Taken 11/24/18] Liraglutide [Victoza 3-Rc] 1.8 mg SQ HS 11/19/18 [Last Taken 11/23/18] Losartan Potassium 100 mg PO DAILY 11/19/18 [Last Taken 11/24/18] Rosuvastatin Calcium [Crestor 10mg (RX)] 5 mg PO DAILY 11/19/18 [Last Taken ] metFORMIN HCL [Glucophage 500 mg (*)] 500 mg PO BIDMEAL 11/19/18 [Last Taken ] - Smoking Hx Smoking Status: Former smoker - Alcohol Use Alcohol Use: Rarely ANE Labs/Vital Signs - Labs Result Diagrams: 11/25/18 16:30 11/25/18 15:25 - Vital Signs Blood Pressure: 101/67 Heart Rate: 100 Respiratory Rate: 20 O2 Sat (%): 95 Height: 172.72 cm Weight: 99.019 kg ANE Physical Exam - Airway Neck exam: FROM Mallampati Score: Class 2 Mouth exam: normal dental/mouth exam - Pulmonary Pulmonary: clear to auscultation - Cardiovascular Cardiovascular: regular rate and rhythym - ASA Status ASA Status: III ANE Anesthesia Plan Anesthesia Plan: GA with mask
[2018-11-26] MEDS ORDERED: PROPOFOL/EMULSION 500 MG/50 ML BOTTLE IV ONE (17:48)
[2018-11-26] MEDS ORDERED: fentaNYL 100 MCG/2 ML INJ ONE ×2 (17:50→19:18)
[2018-11-26] MEDS ORDERED: LIDOCAINE 1% 5 ML SDV ONE (18:00)
[2018-11-26] MEDS ORDERED: PHENYLEPHRINE HCL 100 MCG/ML SYR ONE (18:17)
[2018-11-26] MEDS ORDERED: VASOPRESSIN 20 UNIT/ML VIAL ONE (18:24)
[2018-11-26] MEDS ORDERED: ONDANSETRON 4 MG/2 ML VIAL ONE (19:24)
[2018-11-26] MEDS ORDERED: OXYCODONE/APAP 5/325 TAB PO PRN (20:03)
--- NOTE | 2018-11-26 20:12 | POSTANESTH ---
Post Anesthetic Evaluation Cardiovascular Status: Normal, Stable Respiratory Status: Normal, Stable Level of Consciousness/Mental Status: Can Participate in Eval, Mildly Sleepy, Arousable Pain Control: Adequate, Prn Tx Ordered Nausea/Vomiting Control: Adequate, Prn Tx Ordered Complications Possibly Related to Anesthesia: None Noted
--- NOTE | 2018-11-26 20:21 | EPPROC ---
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 IV antibiotics were administered prior to the procedure. IV sedation was provided by the anesthesiology service. The left anterior chest was prepped and draped in usual sterile fashion. Left upper extremity venogram demonstrated patent left subclavian/innominate venous system. The pacemaker was programmed to DOO pacing mode. A skin incision was made at the chronic incision site, and cutdown was performed to the pocket; the system was taken out of the capsule. The leads were freed of intracapsular adhesions. The pocket was expanded to accommodate the larger pulse generator of the biventricular pacemaker. Under fluoroscopic guidance, vascular access was obtained in the extrathoracic portion of the left subclavian vein, with placement of a 9Fr Donahue CS sheath. The sheath was used to engage the CS, and occlusive venography was performed. This showed a large, trifurcated branch in the lateral CS at the 3oclock position. A ACCOUNTING RECONCILIATION CLERK lead was delivered to a stable distal location in the lower of the three second-order branches. The delivery sheath was peeled and the lead was anchored to the underlying fascia using 2 nonresorbable sutures around the retention sleeve. The chronic pulse generator was disconnected from the chronic leads. The new LV pacing lead as well as the chronic RA and RV pacing leads were connected to the new pulse generator, and the system was placed in the pocket. The pocket was irrigated with antibiotic solution and D Stat hemostatic matrix was injected. The incision was closed in layers using resorbable sutures and dressed with Steri-Strips. Final fluoroscopic survey showed no evidence of pneumothorax, and stable system position. The patient tolerated the procedure well. Pulse generator: [employer] U128, SN [id number], implant 11/26/18 DDDR 60-130 RA lead: SJM 1882TC, SN [id number], implant 04/14/14 5.7mV, 1.2V@0.4ms, 350ohms RV lead: [employer] 4136, SN [id number], implant 04/14/14 paced, 0.7V@0.4ms, 547ohms LV lead: [employer] 4672, SN [id number], implant paced, 0.7V@0.4ms, 1562 ohms EBL: Minimal Complications: None Assessment: Successful upgrade of dual-chamber pacemaker to biventricular pacemaker Plan: Bedrest 4 hr postprocedure, chest x-ray and interrogation in a.m., 1 month left upper extremity restrictions, keep incision dry for 2 weeks Patient Problems: Problems Problem Status Onset Dyspnea Acute
[2018-11-27] MEDS: INSULIN REGULAR HUMAN 100 UNIT/ML UNIT SC SCH ×2 (07:12→14:51)
[2018-11-27] MEDS: ACETAMINOPHEN 325 MG TAB PO PRN (09:07)
[2018-11-27] MEDS: ROSUVASTATIN CALCIUM 10 MG TAB PO SCH (09:07)
--- NOTE | 2018-11-27 09:32 | PDCARPN ---
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 Post-pacemaker instructions were reviewed with patient in detail. He was provided with our post-pacemaker education handout regarding activity restrictions and wound care 2. Device check in 7-10 days 3. Follow-up with EP in 4 weeks 4. OK to DC home today from an EP standpoint pending general cardiology discretion 11/27/18 09:29 Subjective: Patient reported feeling confused post-anesthesia until around 5am, no cardiovascular concerns Reviewed/Discussed With: multidisciplinary team Time Spent with Patient: greater than 25 minutes Time Spent with Patient: Greater than 25 minutes spent on this patients care, greater than 50% of time spent counseling, educating, and coordinating care regarding the above mentioned plan. Objective: Vital Signs (8 Hrs) Temp Pulse Resp BP Pulse Ox 11/27/18 07:07 36.9 C 102 H 18 113/68 97 11/27/18 05:16 36.8 C 103 H 16 120/68 94 11/27/18 02:40 36.8 C 106 H 18 120/68 95 Intake/Output (24 Hrs) 11/26/18 11/27/18 11/28/18 05:59 05:59 05:59 Intake Total 950 1060 Output Total 500 855 Balance 450 205 Intake: Oral (ml) 400 260 IV Intake (ml) 550 800 Output: Urine (ml) 500 850 Urinal 500 850 Estimated Blood Loss (ml) 5 Other: Weight 99.019 kg 96.978 kg Intake Quantity Yes Sufficient Number of Voids Urinal 0 1 Number of Stools Urinal 1 Result Diagrams: 11/25/18 16:30 11/27/18 04:22 Cardiac Labs: Cardiac Lab Results (72 Hrs) 11/25/18 11/24/18 15:25 19:54 Troponin I 0.061 H 0.053 H - Physical Exam Constitutional: WDWN, healthy appearing, no apparent distress Cardiovascular: regular rate and rhythm, no murmurs, no rubs, no gallops Respiratory: clear to auscultate bilat, no crackles, no wheezes Skin: no rashes, no abrasions, no ulcers, warm, no edema, other (left pectoral incision with a clean and dry dressing in place, no hematoma or streaking from this site) Neurologic: AAOx3, CN II-XII grossly intact Psychiatric: cooperative, interactive, following commands, not anxious ICD10 Worksheet Patient Problems: Problems Problem Status Onset Dyspnea Acute
[2018-11-27 10:18] LABS: PLATELET COUNT 178 10^3/uL (150-400)
[2018-11-27 11:28] VITALS: BP 102/61
--- NOTE | 2018-11-27 14:59 | ASMTDCNOTE ---
Case Management Discharge Discharge Order Complete? Answers: Yes Patient to Obtain Answers: Independently Medications Transportation Arranged Answers: Family/Friends Family Notified Answers: Yes Discharge Comments Notes: Medically cleared for independent discharge to home. S/P PPM. F/U with cardiology. Date Signed: 11/27/2018 02:59 PM Electronically Signed By:Nevaeh Matthew RN
--- NOTE | 2018-11-27 15:06 | ASMTLACE ---
LACE Length of stay for Answers: 2 days current admission Acuity / Level of Answers: Yes Care: Did the patient have an inpatient admission? Comorbidities - select Answers: Diabetes (uncontrolled or all that apply controlled) Mild liver or renal disease Other Notes: Pericarditis; HTN # of Emergency department Answers: 1-2 visits in the last 6 months Score: 10 Date Signed: 11/27/2018 03:05 PM Electronically Signed By:Nevaeh Matthew RN
--- NOTE | 2018-11-27 17:25 | PDDCSUM ---
Discharge Summary Discharge Summary: Date of Admission: 11/24/2018 Date of Discharge: 11/27/2018 Consults: Cardiology, EP Procedures: Upgrade to a biventricular permanent pacemaker, LHC, TTE Followup: Cardiology, EP (device check in 7-10 days) Hospital Course Problem List: * Pacing Induced Cardiomyopathy -Evaluated by EP, s/p upgrade to a biventricular permanent pacemaker on 2018 -may eventually need CT surgery, cardiology recommending f/u in month to reevaluate * Acute on chronic systolic CHF - EF 40% -hold further lasix as suspect pre-load dependent * PCM for 2nd degree heart block as above * Borderline troponin -cardiac cath negative for CAD during admission * DM II -Continue Lantus -hold metformin - DC indefinitely due to elevated baseline creatinine 1.6 * SHIRA - CPAP * CKD -baseline creatinine 1.6 * Left humerus head fracture -immobilize in sling * Obesity BMI 33 Time spent on discharge was >35 minutes with >50% of time spent on patient education and counseling.
--- NOTE | 2018-12-04 16:56 | CPEKG ---
Test Reason : OPEN Blood Pressure : / mmHG Vent. Rate : 098 BPM Atrial Rate : 288 BPM P-R Int : 173 ms QRS Dur : 111 ms QT Int : 399 ms P-R-T Axes : 120 256 071 degrees QTc Int : 510 ms Sinus rhythm Ventricular-paced rhythm Prolonged QT interval Confirmed by Enrike Arredondo ([id number]) on 12/04/2018 4:55:24 PM Referred By: Kota Mario Confirmed By:Enrike Arredondo
--- NOTE | 2018-12-04 17:05 | CPEKG ---
Test Reason : OPEN Blood Pressure : / mmHG Vent. Rate : 087 BPM Atrial Rate : 089 BPM P-R Int : 151 ms QRS Dur : 117 ms QT Int : 408 ms P-R-T Axes : 114 267 081 degrees QTc Int : 491 ms Ventricular-paced complexes Confirmed by Enrike Arredondo ([id number]) on 12/04/2018 5:05:10 PM Referred By: Kota Mario Confirmed By:Enrike Arredondo
== END 2018-11-27 15:55 | disposition home or self-care (01) | DRG 242 ==
LOC: F2W 17:17
PROVIDERS: ADMIT Student in an Organized Health Care Education/Training Program; ATTEND Student in an Organized Health Care Education/Training Program
DX: I42.5 Other restrictive cardiomyopathy (principal); I13.0 Hypertensive heart and chronic kidney disease with heart failure and stage 1 through stage 4 chronic kidney disease, or unspecified chronic kidney disease; I50.23 Acute on chronic systolic (congestive) heart failure; N18.4 Chronic kidney disease, stage 4 (severe); E11.22 Type 2 diabetes mellitus with diabetic chronic kidney disease; I44.1 Atrioventricular block, second degree; G47.33 Obstructive sleep apnea (adult) (pediatric); E66.9 Obesity, unspecified; Z68.33 Body mass index [BMI] 33.0-33.9, adult; Z79.4 Long term (current) use of insulin; Z95.0 Presence of cardiac pacemaker; Z87.891 Personal history of nicotine dependence
CPT/HCPCS: 84484-ER; 97116-GP; 97161-GP; 97165-GO; 97535-GO; A4649; C1760; C1769; C1900; C2621; J0690; J1644; J1815; J2250; J2370; J2405; J2704; J3010; Q9967